=== PATIENT | female | born 1990 | race Caucasian/White ===

== ENCOUNTER → 2017-11-03 | Emergency (ER) | payer OTHER ==
[~2017-11-03] VITALS: Ht 160 cm; Wt 79.8 kg
== END | disposition home or self-care (01) ==
LOC: ER 09:29
DX: K52.89 Other specified noninfective gastroenteritis and colitis (principal); Z34.03 Encounter for supervision of normal first pregnancy, third trimester

== ENCOUNTER 2018-01-25 23:03 | Inpatient (IN) | payer OTHER ==
[~2018-01-25] VITALS: Ht 160 cm; Wt 81.6 kg
[2018-01-28] MEDS ORDERED: NABUMETONE750 MG PO (13:17)
== END 2018-01-28 14:08 | disposition home or self-care (01) | DRG 775 ==
LOC: OBS/DEL 23:03 → LDR 01-26 00:11 → OB/GYN 01-26 00:11
PROC: 10E0XZZ Delivery of Products of Conception, External Approach (ICD-10-PCS; principal; 2018-01-26)
PROC: 0W8NXZZ Division of Female Perineum, External Approach (ICD-10-PCS; 2018-01-26)
PROC: 10907ZC Drainage of Amniotic Fluid, Therapeutic from Products of Conception, Via Natural or Artificial Opening (ICD-10-PCS; 2018-01-26)
PROC: 4A1HXCZ Monitoring of Products of Conception, Cardiac Rate, External Approach (ICD-10-PCS; 2018-01-26)
DX: O69.81X0 Labor and delivery complicated by cord around neck, without compression, not applicable or unspecified (principal); O99.824 Streptococcus B carrier state complicating childbirth; Z3A.37 37 weeks gestation of pregnancy; Z37.0 Single live birth

== ENCOUNTER 2019-03-31 11:24 | Inpatient (IN) | payer OTHER ==
[~2019-03-31] VITALS: Ht 160 cm; Wt 85.3 kg
[~2019-03-31 11:24] MED LIST: NABUMETONE750 MG PO
[2019-04-18] MEDS ORDERED: PRENATAL TABLE1 EACH PO (02:55)
== END 2019-04-20 12:46 | disposition home or self-care (01) | DRG 807 ==
LOC: OB/GYN 04-14 14:45 → LDR 04-18 05:43 → OB/GYN 04-18 05:43
PROVIDERS: ADMIT Obstetrics & Gynecology
PROC: 10E0XZZ Delivery of Products of Conception, External Approach (ICD-10-PCS; principal; 2019-04-18)
PROC: 10907ZC Drainage of Amniotic Fluid, Therapeutic from Products of Conception, Via Natural or Artificial Opening (ICD-10-PCS; 2019-04-18)
PROC: 3E033VJ Introduction of Other Hormone into Peripheral Vein, Percutaneous Approach (ICD-10-PCS; 2019-04-18)
PROC: 4A1HXCZ Monitoring of Products of Conception, Cardiac Rate, External Approach (ICD-10-PCS; 2019-04-18)
DX: O80 Encounter for full-term uncomplicated delivery (principal); Z37.0 Single live birth; Z3A.38 38 weeks gestation of pregnancy

== ENCOUNTER 2019-04-18 01:25 | Outpatient (CLI) | payer OTHER ==
[2019-04-18] MEDS ORDERED: PRENATAL TABLE1 EACH PO (02:55)
== END 2019-04-18 07:59 | disposition still patient (30) ==
LOC: OBS/DEL 01:25
DX: O47.1 False labor at or after 37 completed weeks of gestation (principal); Z34.83 Encounter for supervision of other normal pregnancy, third trimester